=== PATIENT | female | born 2000 | race Caucasian/White ===

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

== ENCOUNTER 2020-09-25 08:00 | Outpatient (CLI) | payer OTHER | END 2020-09-25 23:59 | disposition home or self-care (01) | LOC: LAB.R 08:00 | PROVIDERS: ATTEND Family Medicine | DX: J02.9 Acute pharyngitis, unspecified (principal) | CPT/HCPCS: 87070; 87077 ==

== ENCOUNTER 2020-12-05 08:00 | Outpatient (CLI) | payer OTHER ==
[2020-12-05 21:47] LABS: TRICHOMONAS VAGINALIS DNA NEGATIVE (NEGATIVE)
[2020-12-06 13:42] LABS: HEPATITIS A IGM NON-REACTIVE (NON-REACTIVE); HEPATITIS B SURFACE ANTIGEN NON-REACTIVE (NON-REACTIVE); HEPATITIS C ANTIBODY NON-REACTIVE (NON-REACTIVE)
[2020-12-06 14:57] LABS: HIV AG/AB 4TH GEN NON-REACTIVE (NON-REACTIVE)
== END 2020-12-05 23:59 | disposition home or self-care (01) ==
LOC: LAB.N 08:00
PROVIDERS: ATTEND Physician Assistant Medical
DX: Z11.3 Encounter for screening for infections with a predominantly sexual mode of transmission (principal)
CPT/HCPCS: 36415; 80074; 81599; 86592; 87389; 87491; 87591; 87661

== ENCOUNTER 2024-12-21 22:16 | Inpatient (IN) ==
[2024-12-21] MEDS ORDERED: fentaNYL 100 MCG/2 ML VIAL IVP PRN (22:25)
[2024-12-21] MEDS ORDERED: CALCIUM CARBONATE CHEW 500 MG TABLET PO PRN (22:25)
[2024-12-21] MEDS ORDERED: diphenhydrAMINE INJ 50 MG/ML VIAL IVP PRN (22:25)
[2024-12-21] MEDS ORDERED: OXYTOCIN/SODIUM CHLORIDE 500 ML IV PRN (22:25)
[2024-12-21] MEDS ORDERED: NIFEdipine 10 MG CAPSULE PO PRN (22:25)
[2024-12-21] MEDS ORDERED: METOCLOPRAMIDE 10 MG TABLET PO PRN (22:25)
[2024-12-21] MEDS ORDERED: miSOPROStoL 200 MCG TABLET BC PRN (22:25)
[2024-12-21] MEDS ORDERED: OXYTOCIN 10 UNIT/ML VIAL IM PRN (22:25)
[2024-12-21] MEDS ORDERED: METOCLOPRAMIDE 10 MG/2 ML VIAL IVP PRN (22:25)
[2024-12-21] MEDS ORDERED: hydrALAZINE INJ 20 MG/ML VIAL IVP PRN (22:25)
[2024-12-21] MEDS ORDERED: TERBUTALINE 1 MG/ML VIAL SUBQ PRN (22:25)
[2024-12-21] MEDS ORDERED: LABETALOL 20 MG/4 ML SYRINGE IVP PRN ×3 (22:25)
[2024-12-21] MEDS ORDERED: ONDANSETRON ODT 4 MG TABLET PO PRN (22:25)
[2024-12-21] MEDS ORDERED: FAMOTIDINE 20 MG/2 ML VIAL IVP PRN (22:25)
[2024-12-21] MEDS ORDERED: miSOPROStoL 200 MCG TABLET PR PRN (22:25)
[2024-12-21] MEDS ORDERED: METHYLERGONOVINE 0.2 MG/ML VIAL IM PRN (22:25)
[2024-12-21] MEDS ORDERED: SODIUM CHLORIDE FLUSH 0.9% 10 ML SYRINGE IVP PRN (22:25)
[2024-12-21] MEDS ORDERED: lidocaine 1% 20 ML MDV ID PRN (22:25)
--- NOTE | 2024-12-21 22:41 | HISTORY & PHYSICAL EXAMINATION ---
Admit History Smoking Status: Never smoker Meds/Allgy Home Medications Ambulatory Orders Medication Instructions Recorded Confirmed ondansetron HCl 4 mg tablet 4 mg PO Q8H 08/22/24 12/21/24 vitamins no.159-iron tab PO 08/22/24 12/21/24 fumarate 28 mg-folic acid 800 mcg tablet ( Vitamin) duloxetine 30 mg capsule,delayed 30 mg PO QDAY #90 caps 12/12/24 12/21/24 release Allergies Allergies Allergy/AdvReac Type Severity Reaction Status Date / Time No Known Drug Allergies Allergy Verified 12/21/24 16:34 PFSH Active Problems All Active Problems (Updated 11/20/24 @ 16:27 by Joi Oleary MA) Encounter for screening for Streptococcus B (Acute) Uterine size date discrepancy (Acute) Depression with anxiety (Acute 07/24/20) Attention deficit disorder of adult (Acute 10/30/22) Normal in second trimester (Acute) Medical History Medical History (Updated 11/20/24 @ 16:27 by Joi Oleary MA) Febrile seizure Laceration without foreign body, left lower leg, initial encounter (02/11/21) Dysplasia of cervix, low grade (NATALIE 1) (10/30/22) Surgical History Surgical History (Updated 08/22/24 @ 13:02 by Joi Oleary MA) History of colposcopy 2000 Family History Family History (Updated 09/27/24 @ 13:56 by Susanna Oleary MD) Mother Arthritis Asthma Depressed Paternal grandfather Colon cancer Father Mental disorder Paternal grandmother Diabetes Maternal grandmother Depressed Brother Febrile seizure Brother Febrile seizure Social History Social History (System 08/14/24 @ 14:42 by Beti Sánchez) Smoking Status: Never smoker History of Abuse: No POLST Patient has POLST: No Plan for Labor Plan For Labor I expect patient to be DC'd or transferred within 96 hours.: Yes Plan for Labor: LMP: 03/13/2024 COLIN by LMP: 12/18/2024 05/11/2024 / 8+3/ C/W dates Final COLIN: 12/18/2024 ALLERGIES: NKDA RX: Duloxetine, PNV, Zofran Medical Hx: -NATALIE-1 Colposcopy in 2020. Pap smear at intake- negative. -Depression Well-managed on duloxetine 30 mg daily -ADD Was on Adderall prior to but stopped with positive test Surgeries: None FHx: Depression - Mother, MGM; Diabetes - PGM; Colon cancer - PGF; Asthma - mother; Arthritis - mother. Social Hx: Never smoker. No ETOH or IVDA. FOB [employer] active [employer]. Nearing her degree in housekeeper caregiver education. 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 Pre- Weight: 150lb. BMI: 23.68 course: Blood type: O+ Antibody: negative CBC: PLT 324 HCT 40.0 HGB 13.9 RUB: NOT immune VZV: NOT immune HBsAg: neg HepC: NR RPR/AB-EIA: NR HIV: NR PAP: 05/26/24 NILM GC/CT: negative HSV: denies Genetic testing: quad screen normal Covid: virus, past vaccines; 11/20/2024 Flu: 08/22/24 FAS: 08/01/2024 Placenta: posterior Cord: 3vc KHADIJAH: 13.8cm EFW: 342g; 52%tile 50gm OGCT: 101 TDAP: 09/27 Breast Pump: 08/22 RPR: NR 3rd trimester H/H 12.8/39.1 PLT 318 GBS: 11/20/2024 - Negative Physical Exam: Normocephalic, atraumatic Heart RRR w/o M/G/R Lungs CTAB Abdomen gravid, soft, nontender FHR baseline 150s, moderate variability, + accels, no decels Contractions palpate moderate every minutes with soft resting tone SVE deferred (most recent exam earlier today in the office /-1 and vertex) Bilateral LE's trace edema Mood is good Assessment: 24yo @ 40.3wks gestation by LMP c/w 8wk U/S Early labor FHR Category I GBS negative Plan: Admit to [facility] for expectant management. Consider AROM with next SVE for augmentation of labor. Jacuzzi PRN. Nitrous oxide PRN. Epidural per maternal request. Anticipate .
[2024-12-21 22:44] LABS: BASOPHILS % (AUTO) 0.3 %; EOSINOPHILS # (AUTO) 0.1 10^3/uL (0.0-0.7); HCT - HEMATOCRIT 36.6 % (37.0-47.0); HGB - HEMOGLOBIN 11.9 g/dL (12.0-16.0); LYMPHOCYTES # (AUTO) 2.1 10^3/uL (1.5-3.5); LYMPHOCYTES % (AUTO) 17.5 %; MEAN CORPUSCULAR HEMOGLOBIN 27.2 pg (27.0-31.0); MEAN CORPUSCULAR HGB CONC 32.5 g/dL (32.0-36.0); MEAN CORPUSCULAR VOLUME 83.6 fL (81.0-99.0); MEAN PLATELET VOLUME 11.5 fL (7.9-10.8); MONOCYTES # (AUTO) 0.9 10^3/uL (0.0-1.0); MONOCYTES % (AUTO) 7.7 %; NEUTROPHILS # (AUTO) 8.8 10^3/uL (1.5-6.6); NEUTROPHILS % (AUTO) 73.1 %; PLT - PLATELET COUNT 259 10^3/uL (130-450); RED BLOOD COUNT 4.38 10^6/uL (4.20-5.40); RED CELL DISTRIBUTION WIDTH 13.6 % (12.0-15.0)
[2024-12-21] MEDS: LACTATED RINGERS 1,000 ML IV PRN (22:50)
[2024-12-21 22:57] LABS: ALBUMIN 3.2 g/dL (3.2-5.5); ALBUMIN/GLOBULIN RATIO 1.3 (1.0-2.2); BILIRUBIN,TOTAL 0.2 mg/dL (0.2-1.0); CREATININE 0.7 mg/dL (0.6-1.3); POTASSIUM 3.9 mmol/L (3.5-4.5); TOTAL PROTEIN 5.6 g/dL (6.4-8.9)
[2024-12-21] MEDS ORDERED: SODIUM CHLORIDE FLUSH 0.9% 10 ML SYRINGE IVP SCH (23:00)
[2024-12-21] MEDS ORDERED: LIDOCAINE 2%-EPI 1:100000 20 ML MDV ONE (23:13)
[2024-12-21] MEDS ORDERED: ROPIVACAINE 0.2% 200 MG/100 ML BAG EP ONE (23:14)
[2024-12-22] MEDS ORDERED: diphenhydrAMINE INJ 50 MG/ML VIAL IVP PRN (00:01)
[2024-12-22] MEDS ORDERED: NALBUPHINE 10 MG/ML AMP IVP PRN (00:01)
[2024-12-22] MEDS ORDERED: ePHEDrine 50 MG/ML VIAL IVP PRN (00:01)
[2024-12-22] MEDS ORDERED: NALOXONE 0.4 MG/ML VIAL IVP PRN ×2 (00:01→20:50)
[2024-12-22] MEDS ORDERED: LACTATED RINGERS 500 ML IV ONE (00:01)
[2024-12-22] MEDS ORDERED: METOCLOPRAMIDE 10 MG/2 ML VIAL IVP PRN (00:01)
[2024-12-22] MEDS ORDERED: ONDANSETRON 4 MG/2 ML VIAL IVP PRN (00:01)
--- NOTE | 2024-12-22 00:03 | ANESTHESIA PROCEDURE NOTE ---
Pre-Anesthesia VS, & Labs Diagnosis Surgical Diagnosis:: labor pain Procedure Procedure: labor epidural NPO NPO: >8 hours Is Patient ?: Yes Lab Results Current Lab Results: Laboratory Tests 12/21/24 22:35: WBC 12.0 H, RBC 4.38, Hgb 11.9 L, Hct 36.6 L, MCV 83.6, MCH 27.2, MCHC 32.5, RDW 13.6, Plt Count 259, MPV 11.5 H, Neut # (Auto) 8.8 H, Lymph # (Auto) 2.1, Brantley # (Auto) 0.9, Eos # (Auto) 0.1, Baso # (Auto) 0.0, Absolute Nucleated RBC 0.00, Nucleated RBC % 0.0, Sodium 138, Potassium 3.9, Chloride 109, Carbon Dioxide 24, Anion Gap 5.0 L, BUN 8, Creatinine 0.7, Estimated GFR (MDRD) 102, Glucose 102, Calcium 9.0, Total Bilirubin 0.2, AST 17, ALT 14, A lkaline Phosphatase 298 H, Total Protein 5.6 L, Albumin 3.2, Globulin 2.4, Albumin/Globulin Ratio 1.3, Blood Type O POSITIVE, Antibody Screen NEGATIVE 12/21/24 22:35 12/21/24 22:35 Meds/Allgy Home Medications Ambulatory Orders Medication Instructions Recorded Confirmed ondansetron HCl 4 mg tablet 4 mg PO Q8H 08/22/24 12/21/24 vitamins no.159-iron tab PO 08/22/24 12/21/24 fumarate 28 mg-folic acid 800 mcg tablet ( Vitamin) duloxetine 30 mg capsule,delayed 30 mg PO QDAY #90 caps 12/12/24 12/21/24 release Allergies Allergies Allergy/AdvReac Type Severity Reaction Status Date / Time No Known Drug Allergies Allergy Verified 12/21/24 16:34 PFSH Active Problems All Active Problems (Updated 11/20/24 @ 16:27 by Joi Oleary MA) Encounter for screening for Streptococcus B (Acute) Uterine size date discrepancy (Acute) Depression with anxiety (Acute 07/24/20) Attention deficit disorder of adult (Acute 10/30/22) Normal in second trimester (Acute) Medical History Medical History (Updated 11/20/24 @ 16:27 by Joi Oleary MA) Febrile seizure Laceration without foreign body, left lower leg, initial encounter (02/11/21) Dysplasia of cervix, low grade (NATALIE 1) (10/30/22) Surgical History Surgical History (Updated 08/22/24 @ 13:02 by Joi Oleary MA) History of colposcopy 2000 Family History Family History (Updated 09/27/24 @ 13:56 by Susanna Oleary MD) Mother Arthritis Asthma Depressed Paternal grandfather Colon cancer Father Mental disorder Paternal grandmother Diabetes Maternal grandmother Depressed Brother Febrile seizure Brother Febrile seizure Social History Social History (System 08/14/24 @ 14:42 by Beti Sánchez) Smoking Status: Never smoker History of Abuse: No POLST Patient has POLST: No Anesthesia Exam (Expanded) Exam General: Alert, Oriented x3 and Cooperative Dental: WNL Mouth Openin Fingerbreadth Neck Mobility: Normal Mallampati classification: II Thyromental Distance: 4-6 cm Respiratory: Lungs clear Cardiovascular: Regular rate Plan Plan Anesthesia Type: Epidural Consent for Procedure(s) Verified and Reviewed: Yes Code Status: Attempt Resuscitation ASA Classification ASA classification: 2-Mild systemic disease Is this case an emergency?: No
--- NOTE | 2024-12-22 00:43 | PROVIDER PROGRESS NOTE ---
Labor Progress Note Labor Progress Note Labor Progress Note/Additional Text: S: Pt comfortable with epidural. She is looking forward to getting some sleep now that she is comfortable as she has not slept well for the past 2 nights. Her Joseph remains supportive at the bedside. O: FHR baseline 130s, moderate variability, + accels, no decels Contractions palpate moderate every 4-5 minutes with soft resting tone SVE 4/80/-1, midposition, soft. Vertex. Intact membranes A: 24yo @ 40.4wks gestation Early labor FHR Category I GBS negative P: Maintain epidural for pain management. Continuous monitoring. Initiate pitocin for augmentation of labor with titration per protocol if contractions decrease less than every 4-5 minutes. Encouraged rotation in bed on peanut ball. Anticipate .
[2024-12-22] MEDS: OXYTOCIN/SODIUM CHLORIDE 500 ML IV SCH (02:05)
[2024-12-22] MEDS: ROPIVACAINE 0.2% 200 MG/100 ML BAG EP PRN (07:55)
--- NOTE | 2024-12-22 08:49 | PROVIDER PROGRESS NOTE ---
Labor Progress Note Labor Progress Note Labor Progress Note/Additional Text: S/O: Comfortable with epidural. supportive at bedside. Pitocin @ 5mu/min ctx q 3-3.5 minutes. FHT baseline 140-145, moderate variability, + accelerations, no significant decelerations. Overall reassuring FHT and Category I. AROM, light meconium A/P: 24 yo @ 40+4 weeks gestation Ruptured thin meconium, will plan for Pediatric presence at time of delivery continue to titrate pitocin per protocol Will plan to reevaluate or cervical change in 4-5 hours, sooner as indicated.
--- NOTE | 2024-12-22 11:33 | PHARMACY PROGRESS NOTE ---
Best Possible Medication History Admit Date and Time: 12/21/24 2225 Home Medications Medication Instructions Recorded Confirmed Type vitamins no.159-iron 1 tab PO DAILY 08/22/24 12/22/24 History fumarate 28 mg-folic acid 800 mcg tablet ( Vitamin) duloxetine 30 mg capsule,delayed 30 mg PO QDAY #90 caps 12/12/24 12/22/24 Rx release Processed by: Pharmacy Medications reviewed in ED?: No Medication History completed: Yes Patient Interview: Completed Secondary Source(s): Pharmacy records and Insurance records [facility] Statement: As the person ultimately responsible for medication therapy, providers are able to order a medication from an existing home medication list in [facility] via the "Reconcile Routine" prior to Confirmation of that medication by cryptologic support specialist. Such practice is discouraged except when the physician, in their clinical judgment, deems that a medical need exists for a medication without regard to previous use.
--- NOTE | 2024-12-22 12:53 | PROVIDER PROGRESS NOTE ---
Labor Progress Note Labor Progress Note Labor Progress Note/Additional Text: SVE unchanged. Comfortable with epidural. Frequent positional changes by RN team. Overall reassuring FHT/ category I. Intermittent variables with resolution to baseline. IUPC placed to monitor for continued labor progress. Discussed with RN team goal for pitocin titration to achieve MVU of 200-250mmHg. Will plan to reevaluate in 2-4 hours.
[2024-12-22] MEDS: ACETAMINOPHEN 500 MG TABLET PO PRN (16:01)
--- NOTE | 2024-12-22 18:37 | PROVIDER PROGRESS NOTE ---
Labor Progress Note Labor Progress Note Labor Progress Note/Additional Text: S: Patient is dozing and resting well. Tolerating position changes, coping well, understands situation after our discussions, feels well informed. O: FHR baseline increasing 150-160, moderate variability, + accels, no significant decels. Overall reassuring with moderate variability maintained throughout. IUPC in place. MVU's 140-180. Pitocin currently at 20mu/min. SVE 8/100/0, vertex. Grossly ruptured. Meconium. Will plan for pediatrics at delivery Elevated temp/ not febrile. Returned to baseline after PO tylenol A: 24yo @ 40+4 wks gestation by LMP c/w imaging spontaneous onset of labor Augmentation: Pitocin and AROM augmentation FHR Category I P: scallop cutter machine OBGYN consulted for discussion of titration of pitocin above 20mu/min as well as current labor progress. Will maintain IUPC, and titrate pitocin by 1mu/min for a max infusion of 30mu/min. maintain epidural for pain management encourage rotations in bed on peanut ball
[2024-12-22] MEDS: TRANEXAMIC ACID IN NACL 1,000 MG/100 ML BAG IV PRN (20:13)
--- NOTE | 2024-12-22 20:42 | DELIVERY NOTE ---
Delivery Note Delivery Comments (Free Text/Narrative) Delivery Comments (Free Text/Narrative): This 24-year-old, G1 P 0 @ 40+3 weeks gestation by LMP and confirmed by 8 week ultrasound presented to L&D 12/21/2024 in early labor. Cervix was 3/80/-1 and Vertex GBS negative. Labor augmented with OXYTOCIN MAXIMUM INFUSION OF 20mu/min and AROM. Meconium stained amniotic fluid. FHR pattern demonstrated 150-160 baseline in a category I prior to second stage. Normal labor course. Epidural placed upon maternal request. She then progressed to complete/complete and active second stage began. : Normal spontaneous vaginal delivery of a viable male infant on 12/22/2024 @ 2009 ([facility]), compound delivery of bilateral hands, no nuchal cord. The was placed on maternal abdomen, stimulated, dried and placed skin to skin. Apgars 8 & 9 @ 1 & 5 minutes. The umbilical cord was allowed to stop pulsat ing at which time it was doubly clamped by delivering provider and cut by FOB. 3VC. Cord blood was obtained. Fundal massage and gently cord traction applied for active management of the third stage, increased bleeding prior to placenta delivery and TXA was initiated. Spontaneously and intact delivery of placenta. EBL 450cc. Placenta was not sent to pathology. Pitocin administered via IV for hemostasis and allowed to run freely. Uterine massage was performed until uterus was deemed firm. weight 4160g. Perineum intact. Small left vaginal wall laceration repaired with minimal suturing until bleeding stopped. The laceration was repaired under epidural anesthesia with running 3-0 vicryl rapide, repaired in standards fashion under sterile conditions. Upon re-inspection the patient was hemostatic. Uterus again massaged and found to be firm. Needle and sponge counts were correct. Uterine fundus firm and there is no excessive bleeding. Tissues well approximated. Skin to skin initiated. Family bonding well. Both mother and baby are in stable condition.
[2024-12-22] MEDS ORDERED: hydrALAZINE INJ 20 MG/ML VIAL IVP PRN ×2 (20:50)
[2024-12-22] MEDS ORDERED: OXYTOCIN/SODIUM CHLORIDE 500 ML IV PRN (20:50)
[2024-12-22] MEDS ORDERED: SIMETHICONE CHEW 80 MG TABLET PO PRN (20:50)
[2024-12-22] MEDS ORDERED: LABETALOL 5 MG/1 ML 20 ML MDV IVP PRN (20:50)
[2024-12-22] MEDS ORDERED: LABETALOL 20 MG/4 ML SYRINGE IVP PRN ×2 (20:50)
[2024-12-22] MEDS ORDERED: NIFEdipine 10 MG CAPSULE PO PRN (20:50)
[2024-12-22] MEDS: IBUPROFEN 600 MG TABLET PO PRN (22:38)
[2024-12-22 22:45] LABS: BASOPHILS % (AUTO) 0.2 %; EOSINOPHILS % (AUTO) 0.2 %; HCT - HEMATOCRIT 33.5 % (37.0-47.0); HGB - HEMOGLOBIN 10.5 g/dL (12.0-16.0); LYMPHOCYTES # (AUTO) 1.7 10^3/uL (1.5-3.5); LYMPHOCYTES % (AUTO) 8.5 %; MEAN CORPUSCULAR HEMOGLOBIN 26.2 pg (27.0-31.0); MEAN CORPUSCULAR HGB CONC 31.3 g/dL (32.0-36.0); MEAN CORPUSCULAR VOLUME 83.5 fL (81.0-99.0); MONOCYTES # (AUTO) 1.7 10^3/uL (0.0-1.0); MONOCYTES % (AUTO) 8.8 %; NEUTROPHILS # (AUTO) 16.2 10^3/uL (1.5-6.6); NEUTROPHILS % (AUTO) 81.7 %; PLT - PLATELET COUNT 232 10^3/uL (130-450); RED BLOOD COUNT 4.01 10^6/uL (4.20-5.40); RED CELL DISTRIBUTION WIDTH 13.7 % (12.0-15.0); WHITE BLOOD COUNT 19.8 x10^3/uL (4.8-10.8)
[2024-12-22 22:47] LABS: SLIDE REVIEW? Indicated
[2024-12-22 23:05] LABS: PLATELET ESTIMATE, MANUAL NORMAL (130-450,000) (NORMAL); PLATELET MORPHOLOGY NORMAL APPEARANCE (NORMAL); RBC MORPHOLOGY (MULTIPLE) NORMAL APPEARANCE (NORMAL); WBC MORPHOLOGY (MULTIPLE) NORMAL APPEARANCE (NORMAL)
[2024-12-23] MEDS: DULoxetine 30 MG CAPSULE PO SCH (09:03)
[2024-12-23] MEDS: ACETAMINOPHEN 500 MG TABLET PO PRN (09:14)
[2024-12-23] MEDS: DOCUSATE SODIUM 100 MG CAPSULE PO SCH (09:15)
[2024-12-23] MEDS: PRENATAL VITAMIN TABLET PO SCH (09:23)
--- NOTE | 2024-12-23 11:21 | Discharge Summary ---
Discharge Summary ALLERGIES Allergies Allergy/AdvReac Type Severity Reaction Status Date / Time No Known Drug Allergies Allergy Verified 12/21/24 16:34 MEDICATIONS Ambulatory Orders Medication Instructions Recorded Confirmed vitamins no.159-iron 1 tab PO DAILY 08/22/24 12/22/24 fumarate 28 mg-folic acid 800 mcg tablet ( Vitamin) duloxetine 30 mg capsule,delayed 30 mg PO QDAY #90 caps 12/12/24 12/22/24 release LABS 12/22/24 22:40 12/21/24 22:35 Discharge Plan Discharge Prescriptions: No Action duloxetine 30 mg capsule,delayed release(DR/EC) 30 mg PO QDAY Qty: 90 4RF Vitamin 28 mg iron- 800 mcg tablet 1 tab PO DAILY Print Language: Luxembourgish
--- NOTE | 2024-12-23 11:31 | PROVIDER PROGRESS NOTE ---
Subjective Prog Note Date Prog Note Date: 12/23/24 Prog Note Time: 11:30 Subjective Pt reports feeling: Improved Subjective: Subjective: Patient reports she is doing well. Comfortable WITHOUT pain management Lochia appropriate. Denies heavy bleeding. Ambulating. Pelvic and pain well-controlled. Tolerating oral intake. Diet: Regular. Voiding without difficulty. Passing flatus. Denies BM. Patient is bonding with baby in room Breast feeding going well. Pumping between feedings given baby MEMO + status. Denies feeling lightheaded, dizzy or excessively fatigued. Afebrile Objective General: Alert, oriented, no apparent distress. Cardiovascular: No edema. Regular rate. Regular rhythm. Lungs: No increased work of breathing. Abdomen: Uterus firm. Below umbilicus. No guarding or rebound tenderness. Extremities: No pain on palpation. Distal pulses intact. Assessment and Plan day 1. 24yo s/p , PPD #1 - Routine care - Support efforts - Anticipate discharge tomorrow Current Medications Current Medications Current Medications: Current Medications Generic Name Dose Route Start Last Admin Trade Name Freq PRN Reason Stop Dose Admin Acetaminophen 1,000 mg 12/22/24 15:50 12/22/24 16:01 Acetaminophen 500 Mg Tablet PO 1,000 mg Q8HR PRN Administration Pain or Fever > 38C (100.4F) Acetaminophen 1,000 mg 12/22/24 20:50 12/23/24 09:14 Acetaminophen 500 Mg Tablet PO 1,000 mg Q8HR PRN Administration Mild Pain or Fever>38C(100.4F) Calcium Carbonate/Glycine 1,000 mg 12/21/24 22:25 Calcium Carbonate Chew 500 Mg Tablet PO Q6HR PRN Heartburn Diphenhydramine HCl 25 mg 12/21/24 22:25 Diphenhydramine Inj 50 Mg/Ml Vial IVP Q6H PRN Allergy Symptoms Diphenhydramine HCl 12.5 - 25 mg 12/22/24 00:01 Diphenhydramine Inj 50 Mg/Ml Vial IVP Q6HR PRN ITCHING Docusate Sodium 100 mg 12/22/24 21:00 12/23/24 09:15 Docusate Sodium 100 Mg Capsule PO 100 mg BID BANG Administration Duloxetine HCl 30 mg 12/23/24 09:00 12/23/24 09:03 Duloxetine 30 Mg Capsule PO Not Given DAILY [facility] Ephedrine Sulfate 5 mg 12/22/24 00:01 Ephedrine 50 Mg/Ml Vial IVP Q5M PRN For SBP<100;give until SBP>100 Famotidine 20 mg 12/21/24 22:25 Famotidine 20 Mg/2 Ml Vial IVP DAILY PRN Heartburn Fentanyl 50 mcg 12/21/24 22:25 Fentanyl 100 Mcg/2 Ml Vial IVP Q1H PRN Severe Pain (score 7-10) Hydralazine HCl 5 - 10 mg 12/21/24 22:25 Hydralazine Inj 20 Mg/Ml Vial IVP Q20M PRN SBP> or= 160 OR DBP> or= 110 Protocol Hydralazine HCl 10 mg 12/22/24 20:50 Hydralazine Inj 20 Mg/Ml Vial IVP .ONCE PRN SBP> or= 160 OR DBP> or= 110 Protocol Hydralazine HCl 5 - 10 mg 12/22/24 20:50 Hydralazine Inj 20 Mg/Ml Vial IVP Q20M PRN SBP >=160 and/or DBP >=110 Protocol Lactated Ringer's 500 mls @ 999 mls/hr 12/21/24 22:25 12/22/24 21:00 Lr IV Infused PRN PRN Infusion distress Oxytocin/Sodium Chloride 500 mls @ 999 mls/hr 12/21/24 22:25 Pitocin/Sodium Chloride IV PRN PRN POST- HEMORR PREVENTION Protocol 999 MILLIUNIT/MIN Tranexamic Acid 1,000 mg in 100 mls @ 600 mls/hr 12/21/24 22:25 12/22/24 21:00 Tranexamic 1,000 Mg/100ml-Nacl IV Infused Q30M PRN Infusion EBL >1200mL and within 3hr Ropivacaine 200 mg in 100 mls @ 0 mls/hr 12/22/24 00:01 12/22/24 20:35 Naropin 0.2% EP 0 mls/hr PRN PRN Infusion PAIN Protocol Per Protocol Oxytocin/Sodium Chloride 500 mls @ 2 mls/hr 12/22/24 01:00 12/22/24 22:07 Pitocin/Sodium Chloride IV Infused TITR BANG Titration Protocol 2 MILLIUNIT/MIN Oxytocin/Sodium Chloride 500 mls @ 999 mls/hr 12/22/24 20:50 Pitocin/Sodium Chloride IV PRN PRN POST- HEMORR PREVENTION Protocol 999 MILLIUNIT/MIN Ibuprofen 600 mg 12/22/24 20:50 12/23/24 09:14 Ibuprofen 600 Mg Tablet PO 600 mg Q6HR PRN Administration Moderate Pain (Level 4-6) Labetalol HCl 20 - 80 mg 12/21/24 22:25 Labetalol 20 Mg/4 Ml Syringe IVP Q10M PRN SBP> or= 160 OR DBP> or= 110 Protocol Labetalol HCl 20 mg 12/21/24 22:25 Labetalol 20 Mg/4 Ml Syringe IVP .ONCE PRN SBP> or= 160 OR DBP> or= 110 Protocol Labetalol HCl 20 - 40 mg 12/21/24 22:25 Labetalol 20 Mg/4 Ml Syringe IVP Q10M PRN SBP> or= 160 OR DBP> or= 110 Protocol Labetalol HCl 20 - 80 mg 12/22/24 20:50 Labetalol 5 Mg/1 Ml 20 Ml Mdv IVP Q10M PRN SBP> or= 160 OR DBP> or= 110 Protocol Labetalol HCl 20 - 40 mg 12/22/24 20:50 Labetalol 20 Mg/4 Ml Syringe IVP Q10M PRN SBP> or= 160 OR DBP> or= 110 Protocol Labetalol HCl 20 mg 12/22/24 20:50 Labetalol 20 Mg/4 Ml Syringe IVP .ONCE PRN SBP >=160 and/or DBP >=110 Protocol Lidocaine HCl 20 ml 12/21/24 22:25 Lidocaine 1% 20 Ml Mdv ID 12/24/24 22:25 .ONCE PRN PERINEAL REPAIR Methylergonovine Maleate 0.2 mg 12/21/24 22:25 Methylergonovine 0.2 Mg/Ml Vial IM .ONCE PRN Hemorrhage Metoclopramide HCl 5 mg 12/21/24 22:25 Metoclopramide 10 Mg Tablet PO Q6HR PRN Nausea / Vomiting Metoclopramide HCl 5 mg 12/21/24 22:25 Metoclopramide 10 Mg/2 Ml Vial IVP Q6HR PRN Nausea / Vomiting Metoclopramide HCl 10 mg 12/22/24 00:01 Metoclopramide 10 Mg/2 Ml Vial IVP Q6HR PRN Nausea / Vomiting Misoprostol 600 mcg 12/21/24 22:25 Misoprostol 200 Mcg Tablet BC .ONCE PRN Hemorrhage Misoprostol 800 mcg 12/21/24 22:25 Misoprostol 200 Mcg Tablet GA .ONCE PRN Hemorrhage Nalbuphine HCl 2.5 - 5 mg 12/22/24 00:01 Nalbuphine 10 Mg/Ml Amp IVP Q4H PRN ITCHING Naloxone HCl 0.1 mg 12/22/24 00:01 Naloxone 0.4 Mg/Ml Vial IVP Q2M PRN RR<8 Naloxone HCl 0.4 mg 12/22/24 20:50 Naloxone 0.4 Mg/Ml Vial IVP .ONCE PRN Opioid Overdose Nifedipine 10 - 20 mg 12/21/24 22:25 Nifedipine 10 Mg Capsule PO Q20M PRN SBP> or= 160 OR DBP> or= 110 Protocol Nifedipine 10 - 20 mg 12/22/24 20:50 Nifedipine 10 Mg Capsule PO Q20M PRN SBP >=160 and/or DBP >=110 Protocol Ondansetron HCl 4 mg 12/21/24 22:25 Ondansetron Odt 4 Mg Tablet PO Q4HR PRN Nausea / Vomiting Ondansetron HCl 4 mg 12/22/24 00:01 Ondansetron 4 Mg/2 Ml Vial IVP Q6HR PRN Nausea / Vomiting Oxytocin 10 unit 12/21/24 22:25 Oxytocin 10 Unit/Ml Vial IM .ONCE PRN Step One if no IV access. Multivit/Folic Acid/Iron 1 tab 12/23/24 08:00 12/23/24 09:23 Vitamin Tablet PO 1 tab DAILYWM BANG Administration Simethicone 80 mg 12/22/24 20:50 Simethicone Chew 80 Mg Tablet PO TID PRN Gas Sodium Chloride 10 ml 12/21/24 22:25 Sodium Chloride Flush 0.9% 10 Ml Syringe IVP PRN PRN NEEDED PER PROVIDER ORDERS Sodium Chloride 10 ml 12/21/24 23:00 Sodium Chloride Flush 0.9% 10 Ml Syringe IVP Q8H BANG Terbutaline Sulfate 0.25 mg 12/21/24 22:25 Terbutaline 1 Mg/Ml Vial SUBQ .ONCE PRN Tachystole Objective Vital Signs/Intake & Output Vital Signs: Vital Signs x48h Temp Pulse Resp BP BP Pulse Ox 12/23/24 09:30 36.6 C 91 17 124/84 97 12/23/24 05:59 36.2 C L 70 16 98/65 Intake & Output: Intake & Output 12/20/24 12/21/24 12/22/24 12/23/24 23:59 23:59 23:59 23:59 Intake Total 3627 / 3627 Output Total 1750 / 1750 75 / 75 Balance 1877 / 1877 - / -75 Weight (kg) 211 lb 211 lb Lab Results 12/22/24 22:40 12/21/24 22:35 Other Labs: Lab Results x24hrs 12/22/24 Range/Units 22:40 WBC 19.8 H (4.8-10.8) x10^3/uL RBC 4.01 L (4.20-5.40) 10^6/uL Hgb 10.5 L (12.0-16.0) g/dL Hct 33.5 L (37.0-47.0) % MCV 83.5 (81.0-99.0) fL MCH 26.2 L (27.0-31.0) pg MCHC 31.3 L (32.0-36.0) g/dL RDW 13.7 (12.0-15.0) % Plt Count 232 (130-450) 10^3/uL MPV 11.0 H (7.9-10.8) fL Neut # (Auto) 16.2 H (1.5-6.6) 10^3/uL Lymph # (Auto) 1.7 (1.5-3.5) 10^3/uL [place] # (Auto) 1.7 H (0.0-1.0) 10^3/uL Eos # (Auto) 0.0 (0.0-0.7) 10^3/uL Baso # (Auto) 0.0 (0.0-0.1) 10^3/uL Absolute Nucleated RBC 0.00 x10^3/uL Nucleated RBC % 0.0 /100WBC Manual Slide Review Indicated WBC Morphology NORMAL APPEARANCE (NORMAL) Platelet Estimate NORMAL (130-450,000) (NORMAL) Platelet Morphology NORMAL APPEARANCE (NORMAL) RBC Morph Micro Appear NORMAL APPEARANCE (NORMAL)
[2024-12-24 08:06] VITALS: BP 121/87; TEMP 97.7; O2SAT 100
--- NOTE | 2024-12-24 10:37 | Discharge Summary ---
Discharge Summary HOSPITAL COURSE Hospital Course: Date of Admission: Date of Discharge: 12/24/2024 Diagnosis on Admission: 1. 24yo @ 40.3wks gestation by LMP c/w 8wk U/S 2. Early labor 3. FHR Category I 4. GBS negative Diagnosis on Discharge: 1. 24yo PPD#2 s/p TSVD viable male 2. 3. Normal recovery Brief History: She is a patient of [facility] who presented on 12/21/2024 in early labor. Cervix was 3/80/-1 and vertex with intact membranes. Epidural was placed per maternal request. Pitocin was initiated for augmentation of labor with a maximum infusion rate of 20mU/mL. AROM occurred and was noted to be a moderate amount of meconium stained amniotic fluid. She spontaneously progressed to deliver a viable male infant on @ 2009. Small left vaginal wall laceration repaired using a 3-[address]-1 needle in standard fashion and under sterile conditions. Apgars were 8/9 at 1 and 5 minutes respectively. QBL 450 mL. She has been doing well in her course. She is ambulating and tolerating a regular diet. She is urinating without difficulty and her lochia is normal. Her pain is well controlled with oral medications. She will be discharged home today on day #2 with instructions to continue taking her vitamin while and to continue taking Ibuprofen and Tylenol over the counter as needed for pain management. She intends to follow up with myself at [facility] [place] in 1 week for routine visit or sooner if needed. She has been given precautions to call if she has any worsening fevers, chills, abdominal pain, increased vaginal bleeding or foul smelling vaginal lochia. Physical Exam: Normocephalic, atraumatic. Heart RRR w/o M/G/R, lungs CTAB, abdomen soft and nontender with fundus firm at U, perineum intact, light lochia rubra, bilateral LE's no edema. Mood is good. ALLERGIES Allergies Allergy/AdvReac Type Severity Reaction Status Date / Time No Known Drug Allergies Allergy Verified 12/21/24 16:34 MEDICATIONS Ambulatory Orders Medication Instructions Recorded Confirmed vitamins no.159-iron 1 tab PO DAILY 08/22/24 12/22/24 fumarate 28 mg-folic acid 800 mcg tablet ( Vitamin) duloxetine 30 mg capsule,delayed 30 mg PO QDAY #90 caps 12/12/24 12/22/24 release LABS 12/22/24 22:40 12/21/24 22:35 Discharge Plan Discharge Patient Disposition: Home, Self Care Prescriptions: Continued duloxetine 30 mg capsule,delayed release(DR/EC) 30 mg PO QDAY Qty: 90 4RF Vitamin 28 mg iron- 800 mcg tablet 1 tab PO DAILY Print Language: Korean Patient Instructions: Vaginal After, , Self Care
[2024-12-24] MEDS: MEASLES,MUMPS & RUBELLA VACC 0.5 ML VIAL SUBQ ONE (12:43)
[2024-12-24] MEDS: VARICELLA VACCINE LIVE/PF 1,350 UNIT/0.5 ML VIAL SUBQ ONE (12:45)
--- NOTE | 2024-12-24 14:06 | Labor Flowsheet ---
Labor Flowsheet Datetime Report Generated by CPN: 12/24/2024 14:06 Datetime: 12/24/2024 07:38 VITAL SIGNS NBP Sys/Debbie/Mean (mmHg): 121 : 87 : 92 Pulse: 68 LaborFlag: Labor Datetime: 12/22/2024 21:30 SpO2 (%): 99 Datetime: 12/22/2024 20:02 Pushing Position: Pushing with Contractions; Pushing Lithotomy Pushing Progress: Descent with Pushing Datetime: 12/22/2024 20:00 UTERINE ACTIVITY Monitor Mode: Internal Frequency (min): 1-4 Duration (sec): 60-70 Pattern: Normal: <= 5 Contractions in 10 Minutes Resting Tone (Palpate): Relaxed ASSESSMENT A Monitor Mode: External US FHR Baseline Rate : 150 Variability: Moderate 6-25 bpm Accelerations: 15X15 Decelerations: Early Category: Category I Oxygen Method: Room Air Datetime: 12/22/2024 19:47 Respirations: 16 Temperature (C): 36.7 Datetime: 12/22/2024 19:45 Comments: variables with contractions, CNM in room Datetime: 12/22/2024 19:44 I/O Interventions: Gastelum Discontinued Datetime: 12/22/2024 19:40 VAGINAL EXAM Dilatation (cm): 10.0 Exam by: Mabel Lewis CNM Datetime: 12/22/2024 19:37 STAGE 2 Pushing: Coached on Pushing Datetime: 12/22/2024 19:36 Station: 1 Vaginal Bleeding: None Datetime: 12/22/2024 19:22 Monitor Interventions for FHR: Ultrasound Adjusted PAIN Pain Scale: 0 Pain Presence: None/Denies Pain Relief Measures: Comfort Measures Pain Coping: Talking Through Contractions Pain Assessment Comments: pt states she is comfortable with epidural, but is now feeling some inter mittent rectal pressure during ctx Datetime: 12/22/2024 19:15 Pitocin Checklist: At Least 1 Acceleration of 15 bpm x 15 Seconds in 30 Minutes or Adequate Variabi lity; No More than 1 Late Deceleration Occurred in Past 30 Minutes; No More than 2 Variable Decelerat ions > 60 Seconds in Duration and decreasing >60 bpm in 30 minutes; No More than 5 Uterine Contractio ns in 10 Minutes for any 20 Minute Interval; Uterus Palpates Soft between Contractions Datetime: 12/22/2024 19:00 Monitor Interventions for UA: IUPC Inserted Quality: Strong Resting Tone IUP (mmHg): 15 Intensity IUP (mmHg): 70 Peck Units (mmHg): 185 Datetime: 12/22/2024 18:07 MEDICATIONS Pitocin (milliunits): Increased to @ 20 Datetime: 12/22/2024 17:45 Provider Reviewed Strip: Yes COMMUNICATION Communication: Provider at Bedside Notification Reason: Status; Labor Status; Uterine Activity Communication Comments: Provider instructed nursing to increase pitocin to 20 at next interval and then increase q 30 by 1 as needed, continue to consult with provider Datetime: 12/22/2024 17:44 Patient Position/Activity: Left Lateral Patient Care Comments: stacked hips, peanut ball Datetime: 12/22/2024 17:00 Contraction Comments: IUPC battery . cannot calculate MVUs for this time period Datetime: 12/22/2024 16:01 Analgesics/Sedatives: Tylenol (mg) @ 1000 Medication Comments: Oral for temp of 99.9 Datetime: 12/22/2024 15:37 Maternal Comments: pt "feels cold" Datetime: 12/22/2024 15:11 Hygiene: Marissa Care; Partial Bath; Underpad Changed; Peripad Changed; Linens Changed Datetime: 12/22/2024 13:20 Effacement (%): 90 Cervix, Consistency: Soft Vaginal Exam Comments: LOP Datetime: 12/22/2024 12:04 Actions for Decelerations: IV Bolus Datetime: 12/22/2024 11:30 FHR Baseline Changes: No Baseline Change Datetime: 12/22/2024 10:29 Vital Sign Comments: intermittent maternal tachycardia confirmed by radial pulse. pt admits to feel ing nervous. MATERNAL ASSESSMENT Level of Consciousness: Alert Headache: Denies Nausea/Vomiting: Denies RUQ Epigastric Pain: Denies Datetime: 12/22/2024 08:59 Teaching Comments: partner left bedside; rn asked if pt feels safe at home. pt confirms. discussed potential need to remove mother of pt from room. "safe word" is "grapefruit juice" Datetime: 12/22/2024 08:19 Membranes Rupture Method: Artificial Amniotic Fluid Color: Light Meconium Amniotic Fluid Amount: Moderate Amniotic Fluid Odor: Normal Datetime: 12/22/2024 08:15 Membrane Status: Intact Labor/Induction: Artificial Rupture of Membranes Datetime: 12/22/2024 07:45 PATIENT CARE IV/Blood Work: New IV Bag Hung TEACHING Instructional Method: Verbal Plan of Care: Plan of Care Discussed; Vaginal Delivery; Labor Pain Management: Epidural Medications: Pitocin Related: Maternal Physical Changes; Nutrition; Hydration; Activity and Rest Datetime: 12/22/2024 07:14 ANESTHESIA Anesthesia Plans: Epidural Datetime: 12/22/2024 06:30 Pain Type: N/A Pain Goal: 5 Datetime: 12/22/2024 05:33 Temperature Route: Oral Cervix, Position: Anterior Datetime: 12/22/2024 05:30 Anesthesia Level Check: T6- Xyphoid Datetime: 12/22/2024 05:24 Stage of : Labor Strip Reviewed by: CNM Javed Provider Notified (Name): CNM Javed Datetime: 12/21/2024 23:46 Epidural Procedure Other: Pump Started Anesthesia Comments: Infusion begun Datetime: 12/21/2024 23:40 Epidural Procedure: Loading Dose Datetime: 12/21/2024 23:30 Pain Location: Abdomen; Right Groin; Left Groin Datetime: 12/21/2024 23:21 PROCEDURE TIME OUT Procedure Type: [id number] Procedure Verify: Correct Patient Identity; Correct Side and Site are Marked; Accurate Procedure Co nsent Form; Agreement on Procedure to be Done; Correct Patient Position Epidural Positioning: Sitting Datetime: 12/21/2024 22:55 DTR's/Clonus: DTRs 2+; No Clonus Breath Sounds, Left: Clear and Equal Breath Sounds, Right: Clear and Equal Datetime: 12/21/2024 22:50 Unit Routine: [place] to Room; Call [place]; Bed; Visiting Policy; Waiting Areas; Security; Phon e/Cell Phone Use; Photography; Unit Personnel; Handwashing; Flu/Illness Precautions; Monitoring ; IV Pumps; Safety/Fall Risk Prevention; Diet/Nutrition Services; Bathroom Privileges; Routine Time O uts; Medications Datetime: 12/21/2024 22:46 Membranes Ruptured Date/Time: 12/22/2024 08:19 Datetime: 12/21/2024 22:34 Comfort Measures: Breathing/Relaxation; Family Support
== END 2024-12-24 13:50 | disposition home or self-care (01) | DRG 807 ==
LOC: WFO 22:16 → FBP 22:19
PROVIDERS: ADMIT Nurse Practitioner Obstetrics & Gynecology; ATTEND Nurse Practitioner Obstetrics & Gynecology